=== PATIENT | female | born 1955 | race Caucasian/White ===

== ENCOUNTER 2018-06-10 02:04 | Inpatient (IN) | payer MEDICAID ==
[~2018-06-10] VITALS: Ht 152.4 cm; Wt 64.4 kg
[2018-06-10] MEDS ORDERED: SODIUM CHLORIDE 0.9% 1,000 ML IV ONE (02:42)
[2018-06-10] MEDS ORDERED: ASPIRIN 81MG TABLET PO ONE (02:45)
[2018-06-10] MEDS ORDERED: NITROGLYCERIN OINT 1GM/INCH UDPKT TD ONE (02:45)
[2018-06-10] MEDS ORDERED: FUROSEMIDE 40MG/4ML VIAL IV ONE (02:45)
[2018-06-10 03:10] LABS: HEMATOCRIT. 36.5 % (36.0-48.0); MEAN CORPUSCULAR HEMOGLOBIN 28.8 pg (28.0-32.0); MEAN CORPUSCULAR VOLUME 87.6 fL (81.0-99.0); MEAN PLATELET VOLUME 8.4 fl (7.4-10.4); PLATELET 400 x1000/uL (130-400); RED BLOOD CELL COUNT 4.16 mill/uL (4.2-5.4); RED CELL DISTRIBUTION WIDTH 13.7 % (11.6-14.6)
[2018-06-10 03:17] LABS: CHLORIDE 103 mEq/L (98-107)
[2018-06-10] MEDS ORDERED: ENALAPRIL 2.5MG/2ML VIAL 2ML IV ONE (05:15)
[2018-06-10] MEDS ORDERED: IOHEXOL-350 100 ML BOTTLE ONE (06:26)
[2018-06-10 08:52] LABS: PLATELET ESTIMATE INCREASED
[2018-06-10 09:30] VITALS: BP 177/65
[2018-06-10 12:02] VITALS: BP 177/95
[2018-06-10] MEDS ORDERED: LISI-604 PO (12:11)
[2018-06-10] MEDS ORDERED: ASPI-1158 PO (12:11)
[2018-06-10] MEDS ORDERED: AMLO10TA80 PO (12:11)
[2018-06-10] MEDS ORDERED: CARV12.545 PO (12:11)
[2018-06-10] MEDS ORDERED: METF-815 PO (12:11)
[2018-06-10] MEDS ORDERED: ATOR20TA65 PO (12:11)
[2018-06-10] MEDS ORDERED: ONDANSETRON HCL 4MG/2ML INJ IV PRN (16:45)
[2018-06-10] MEDS ORDERED: DOCUSATE SODIUM 100MG CAPSULE PO PRN (16:45)
[2018-06-10] MEDS ORDERED: ACETAMINOPHEN 325MG TABLET PO PRN (16:45)
[2018-06-10] MEDS ORDERED: LORAZEPAM 0.5MG TABLET PO PRN (16:45)
[2018-06-10] MEDS ORDERED: IPRATROPIUM/ALBUTEROL 0.5-3(2.5)MG/3ML NEB INH PRN (16:45)
[2018-06-10] MEDS ORDERED: HYDROCODONE/ACETAMINOPHEN 5/325MG TABLET PO PRN (16:45)
[2018-06-10] MEDS ORDERED: DEXTROSE 50% WATER 50ML SYRINGE IV PRN (17:15)
[2018-06-10] MEDS: BLOOD SUGAR DIAGNOSTIC STRIP TEST SCH ×2 (17:50→20:14)
[2018-06-10 18:00] VITALS: BP 195/87
[2018-06-10 18:34] LABS: PHOSPHORUS 2.6 mg/dL (2.5-4.9)
[2018-06-10 18:39] LABS: CREATINE KINASE MB FRACTION 4.8 ng/mL (0.5-3.6)
[2018-06-10] MEDS: INSULIN LISPRO 100 UNITS/ML SUBCUT SCH ×2 (19:10→20:30)
[2018-06-10] MEDS: CLONIDINE 0.1MG TABLET PO PRN (19:26)
[2018-06-10] MEDS: AMLODIPINE 5MG TABLET PO SCH (20:28)
[2018-06-10] MEDS: ATORVASTATIN CALCIUM 20MG TABLET PO SCH (20:32)
[2018-06-10] MEDS ORDERED: ATORVASTATIN CALCIUM 20MG TABLET PO SCH (21:00)
[2018-06-10] MEDS ORDERED: METOPROLOL TARTRATE 25MG TABLET PO SCH (21:00)
[2018-06-10 21:48] LABS: PROTHROMBIN TIME 10.5 sec (9.1-11.1)
[2018-06-10 22:00] VITALS: BP 143/80
[2018-06-10] MEDS: ENOXAPARIN 60MG/0.6ML SYR SUBCUT SCH (23:00)
[2018-06-11] VITALS (9 sets, daily range): BP systolic 118–170; BP diastolic 60–102
[2018-06-11] MEDS: BLOOD SUGAR DIAGNOSTIC STRIP TEST SCH ×4 (06:42→20:33)
[2018-06-11 06:50] LABS: BASOPHILS % 0.7 % (0.0-2.0); EOSINOPHILS % 1.6 % (0.0-5.0); HEMATOCRIT. 35.3 % (36.0-48.0); HEMOGLOBIN. 11.7 g/dL (12.0-16.0); LYMPHOCYTES % 21.8 % (20.0-50.0); MEAN CORPUSCULAR HEMOGLOBIN 29.5 pg (28.0-32.0); MEAN PLATELET VOLUME 8.7 fl (7.4-10.4); MONOCYTES % 6.4 % (2.0-8.0); NEUTROPHILS % 69.5 % (40.0-76.0); PLATELET 354 x1000/uL (130-400); RED BLOOD CELL COUNT 3.96 mill/uL (4.2-5.4); RED CELL DISTRIBUTION WIDTH 13.9 % (11.6-14.6)
[2018-06-11 07:22] LABS: CHLORIDE 107 mEq/L (98-107)
[2018-06-11 07:31] LABS: CREATINE KINASE 165 IU/L (26-192)
[2018-06-11 07:32] LABS: CREATINE KINASE MB FRACTION 3.2 ng/mL (0.5-3.6)
[2018-06-11] MEDS: INSULIN LISPRO 100 UNITS/ML SUBCUT SCH ×4 (08:00→21:24)
[2018-06-11] MEDS: AZITHROMYCIN 500 MG TABLET PO SCH ×2 (10:41→10:50)
[2018-06-11] MEDS: ASPIRIN 81MG TABLET PO SCH (10:41)
[2018-06-11] MEDS: AMLODIPINE 5MG TABLET PO SCH ×2 (10:41→21:25)
[2018-06-11] MEDS: FUROSEMIDE 40MG/4ML VIAL IVP SCH ×2 (10:42→10:50)
[2018-06-11] MEDS ORDERED: LISINOPRIL 10MG TABLET PO SCH (10:45)
[2018-06-11] MEDS: ENOXAPARIN 60MG/0.6ML SYR SUBCUT SCH ×2 (10:45→21:49)
[2018-06-11] MEDS ORDERED: METOPROLOL TARTRATE 50MG TABLET PO SCH (10:45)
[2018-06-11] MEDS: ATORVASTATIN CALCIUM 20MG TABLET PO SCH (21:00)
[2018-06-11] MEDS: LISINOPRIL 10MG TABLET PO SCH (21:00)
[2018-06-11] MEDS: METOPROLOL TARTRATE 50MG TABLET PO SCH (21:25)
[2018-06-12] VITALS: BP 145/65
[2018-06-12 04:00] VITALS: BP 154/67
[2018-06-12] MEDS: BLOOD SUGAR DIAGNOSTIC STRIP TEST SCH ×3 (06:23→17:32)
[2018-06-12] MEDS: INSULIN LISPRO 100 UNITS/ML SUBCUT SCH ×3 (06:24→17:37)
[2018-06-12 07:02] LABS: BASOPHILS % 1.1 % (0.0-2.0); EOSINOPHILS % 3.1 % (0.0-5.0); MEAN CORPUSCULAR HEMOGLOBIN 28.8 pg (28.0-32.0); MEAN CORPUSCULAR VOLUME 86.6 fL (81.0-99.0); MEAN PLATELET VOLUME 8.6 fl (7.4-10.4); MONOCYTES % 7.7 % (2.0-8.0); NEUTROPHILS % 59.1 % (40.0-76.0); PLATELET 382 x1000/uL (130-400); RED BLOOD CELL COUNT 3.81 mill/uL (4.2-5.4); RED CELL DISTRIBUTION WIDTH 13.5 % (11.6-14.6)
[2018-06-12 08:00] VITALS: BP 165/60
[2018-06-12] MEDS: AZITHROMYCIN 500 MG TABLET PO SCH (08:48)
[2018-06-12] MEDS: FUROSEMIDE 40MG/4ML VIAL IVP SCH (08:48)
[2018-06-12] MEDS: ASPIRIN 81MG TABLET PO SCH (08:48)
[2018-06-12] MEDS: AMLODIPINE 5MG TABLET PO SCH (08:49)
[2018-06-12] MEDS: METOPROLOL TARTRATE 50MG TABLET PO SCH (08:49)
[2018-06-12] MEDS: LISINOPRIL 10MG TABLET PO SCH (08:50)
[2018-06-12] MEDS: ENOXAPARIN 60MG/0.6ML SYR SUBCUT SCH (09:01)
[2018-06-12 12:00] VITALS: BP 173/69
[2018-06-12] MEDS: CLONIDINE 0.1MG TABLET PO PRN (12:33)
[2018-06-12] MEDS ORDERED: METO100T16 PO (14:47)
[2018-06-12] MEDS ORDERED: LISI-604 PO (14:47)
[2018-06-12 16:00] VITALS: BP 140/42
[2018-06-12 18:12] VITALS: BP 140/42
[2018-06-12] MEDS ORDERED: METOPROLOL TARTRATE 100MG TABLET PO SCH (21:00)
[2018-06-12] MEDS ORDERED: LISINOPRIL 20MG TABLET PO SCH (21:00)
== END 2018-06-12 18:50 | disposition home or self-care (01) | DRG 720 ==
LOC: ER 02:04 → 5EST 05:07 → EDBEDREQ 05:15 → EDBEDREQSVC 05:15 → EDBEDREQTM 05:15 → ENRESERV 08:04 → 5EST 10:19 → 5WST 06-11 23:50
PROVIDERS: ADMIT Internal Medicine; ATTEND Internal Medicine
PROC: 5A09357 Assistance with Respiratory Ventilation, Less than 24 Consecutive Hours, Continuous Positive Airway Pressure (ICD-10-PCS; principal; 2018-06-10)
DX: A41.9 Sepsis, unspecified organism (principal); J96.00 Acute respiratory failure, unspecified whether with hypoxia or hypercapnia; I50.21 Acute systolic (congestive) heart failure; I11.0 Hypertensive heart disease with heart failure; I27.20 Pulmonary hypertension, unspecified; I42.9 Cardiomyopathy, unspecified; J18.9 Pneumonia, unspecified organism; E11.65 Type 2 diabetes mellitus with hyperglycemia; E66.9 Obesity, unspecified; E78.5 Hyperlipidemia, unspecified; I16.1 Hypertensive emergency; M17.11 Unilateral primary osteoarthritis, right knee; Z79.4 Long term (current) use of insulin; Z79.82 Long term (current) use of aspirin; Z79.84 Long term (current) use of oral hypoglycemic drugs; Z79.899 Other long term (current) drug therapy; Z68.27 Body mass index [BMI] 27.0-27.9, adult
CPT/HCPCS: 36415; 71045; 71275; 80048; 80061; 82550; 82553; 82962; 83036; 83735; 83880; 84100; 84145; 84443; 84484; 93005; 93306; 94660; 96374; 96375; 99285; J1650; J1815; J1940; J3490; J7030; Q9967